=== PATIENT | male | born 1935 | race Caucasian/White ===

== ENCOUNTER 2020-12-07 18:23 | Inpatient (IN) | payer MEDICARE, OTHER ==
[~2020-12-07] VITALS: Ht 160 cm; Wt 65.8 kg
--- NOTE | 2020-12-07 18:28 | NUR ---
AT [facility] FOR EVAL.
--- NOTE | 2020-12-07 18:33 | NUR ---
IV LINE ESTABLISHED BLOOD DRAW AND SENT TO LAB.
--- NOTE | 2020-12-07 18:36 | NUR ---
CODE STROKE ACTIVATED.
--- NOTE | 2020-12-07 18:39 | NUR ---
PT IS WHEELED TO CT SCAN VIA [facility].
[2020-12-07 18:45] LABS: BASOPHILS # (AUTO) 0.1 /CMM (0.0-0.2); BASOPHILS % (AUTO) 1.2 % (0.0-2.0); EOSINOPHILS % (AUTO) 0.6 % (0.0-6.0); HEMATOCRIT 43 % (39-51); HEMOGLOBIN 14.5 g/dL (13.5-17.5); LYMPHOCYTES % (AUTO) 11.1 % (20.0-44.0); MEAN CORPUSCULAR HGB CONC 34 g/dl (31.0-36.0); MEAN CORPUSCULAR VOLUME 93 fL (80-96); MONOCYTES # (AUTO) 0.4 /CMM (0.1-1.30); MONOCYTES % (AUTO) 4.6 % (2.0-12.0); NEUTROPHILS # (AUTO) 7.8 /CMM (1.8-8.9); NEUTROPHILS % (AUTO) 82.5 % (43.0-81.0); PLATELET COUNT (AUTO) 268 /CMM (150-450); RED BLOOD CELL COUNT(AUTO) 4.62 MIL/uL (4.5-6.0); WHITE BLOOD COUNT (AUTO) 9.4 K/uL (4.3-11.0)
[2020-12-07] MEDS ORDERED: IOHEXOL-350 100 ML VIAL IV ONE (18:45)
[2020-12-07] MEDS ORDERED: CT SWABBABLE VALVE TRANS SET 1 EA INFUS.SET MC ONE (18:45)
[2020-12-07] MEDS ORDERED: IV NS 0.9% 250 ML IV ONE (18:46)
[2020-12-07 18:51] LABS: CALCIUM, SERUM 9.8 mg/dL (8.5-10.1); CARBON DIOXIDE 24 mmol/L (21-32); CHLORIDE 104 mmol/L (98-107); GLUCOSE 108 mg/dL (74-106); POTASSIUM 4.1 mmol/L (3.5-5.1); SODIUM SERUM 141 mmol/L (136-145); UREA NITROGEN, BLOOD 16 mg/dL (7-18)
[2020-12-07] MEDS ORDERED: CALC1TAB30 PO (18:51)
[2020-12-07] MEDS ORDERED: DIGO125T PO (18:51)
[2020-12-07] MEDS ORDERED: AMLO2.5T4 PO (18:51)
[2020-12-07] MEDS ORDERED: LISI2.5T2 PO (18:51)
[2020-12-07] MEDS ORDERED: OMEP20CA15 PO (18:51)
[2020-12-07] MEDS ORDERED: CLOP75TA15 PO (18:51)
[2020-12-07] MEDS ORDERED: ASPI-1169 PO (18:51)
--- NOTE | 2020-12-07 19:01 | NUR ---
NIHSS SCORE 6
--- NOTE | 2020-12-07 19:02 | NUR ---
SWALLOW EVAL DONE, PATIENT FAILED DUE TO DYSARTHRIA.
[2020-12-07 19:09] LABS: CHOLESTEROL 185 mg/dL (<200); HDL CHOLESTEROL 64 mg/dL (40-60); LDL 92 mg/dL (0-99); TRIGLYCERIDES 195 mg/dL (30-150)
--- NOTE | 2020-12-07 19:09 | NUR ---
TELE NEURO ACTIVATED AND DR KIMBROUGH ON THE MONITOR FOR EVAL.
--- NOTE | 2020-12-07 19:43 | NUR ---
covid swab collected and sent to the lab
--- NOTE | 2020-12-07 19:52 | NUR ---
DR. ROMAN SPEAKING WITH DR. AVENDAÑO REGARDING ADMISSION
--- NOTE | 2020-12-07 20:05 | NUR ---
CALLED NURSING SUP FOR BED
--- NOTE | 2020-12-07 21:07 | NUR ---
SUJATHA LIANG, SON, WILL CALL FOR ANY UPDATES. PLEASE LET HIM KNOW.
--- NOTE | 2020-12-07 21:24 | NUR ---
BED ASSIGNMENT 328
--- NOTE | 2020-12-07 21:30 | NUR ---
PATIENT AMBULATED TO THE RESTROOM WITH A STEADY GAIT.
[2020-12-07] MEDS ORDERED: SIMVASTATIN 40 MG TABLET PO SCH (22:00)
--- NOTE | 2020-12-07 22:01 | NUR ---
REPORT GIVEN TO [facility] FOR LINDA.
[2020-12-07 22:10] VITALS: BP 125/86
--- NOTE | 2020-12-07 22:10 | NUR ---
TELERN RECEIVED FROM ER VIA HIRA AN 84 Y/O MALE WITH CC OF WORSENING SLURRED SPEECH SINCE THIS AFTERNOON. PATIENT IS AMBULATORY WITH STANDBY ASSIST. HFR. ASSISTED TO RESTROOM VOIDED FREELY. ORIENTED TO ROOM FACILITIES AND CALL LIGHT USE. APPEARS TO UNDERSTAND. LUMBER TRIPPER SHOWING AFIB AT RATE 80s. DENIES ANY DISCOMFORTS OF THIS TIME. NO SOB. 97% ON ROOM AIR. ABLE TO PROVIDE INFO AND ABLE TO FOLLOW INSTRUCTIONS. HAS EXPRESSIVE APHASIA. NO DIFFICULTY SWALLOWING. SAFETY PRECAUTIONS EMPHASIZED , INSTRUCTED TO CALL STAFF FOR ANY ASSISTANCE OR DISCOMFORTS. CALL LIGHT WITHIN REACH. CONTINUED MONITORING.
--- NOTE | 2020-12-07 22:10 | NUR ---
REGISTERED NURSING PROFESSORSPINNING LATHE OPERATOR HYDRAULIC NOTES [facility] CHARGE NURSE RECEIVED REPORT FROM ER AND ENDORSED TO RN. PATIENT TRANSFERRED FROM ER TO TELE 3W AT 2210. PATIENT A/OX0 AT THE TIME; CONFUSION NOTED. LEFT SIDED FACIAL DROOP NOTED. SLURRED AND DELAYED SPEECH NOTED. NIH STROKE SCALE 6. ON ROOM AIR AND TOLERATING WELL. EXTERNAL CARDIAC TELE MONITORING; READS AFIB AND HR AT 76. IV LAC #18G S/L; PATENT AND INTACT. DENIES PAIN OR DISCOMFORT AT THE TIME. SKIN IS INTACT. TOLERATED SWALLOWING THIN LIQUIDS WELL. ORIENTED PATIENT TO ROOM AND STAFF. ALL BELONGINGS ACCOUNTED FOR AND RN SIGNED BELONGINGS LIST PAPER. ALL SAFETY MEASURES IN PLACE; BED IN LOWEST LOCKED POSITION, SIDE RAILS UP X3, BED ALARMS ON, CALL LIGHT WITHIN EASY REACH. WILL CONTINUE TO MONITOR.
[2020-12-07 22:20] VITALS: BP 125/86
--- NOTE | 2020-12-07 22:20 | NUR ---
TELERN UNABLE TO REACH FAMILY FOR FURTHER INFO.
--- NOTE | 2020-12-07 22:21 | NUR ---
PATIENT TAKEN UP TO ASSIGNED ROOM FOR LINDA.
[2020-12-07] MEDS ORDERED: SIMVASTATIN 20 MG TABLET ONE (23:36)
[2020-12-07] MEDS: ASPIRIN EC 325 MG TABLET.DR PO SCH (23:37)
[2020-12-07] MEDS: SIMVASTATIN 20 MG TABLET PO SCH (23:51)
--- NOTE | 2020-12-08 00:18 | NUR ---
TELERN SEEN BY DR. AVENDAÑO
[2020-12-08 00:49] VITALS: BP 113/62
[2020-12-08 04:53] VITALS: BP 133/48
[2020-12-08] MEDS ORDERED: ONDANSETRON HCL/PF 8 MG in IV D5W 50 ML IVP PRN (07:00)
[2020-12-08 07:28] LABS: BASOPHILS % (AUTO) 0.6 % (0.0-2.0); EOSINOPHILS % (AUTO) 0.9 % (0.0-6.0); HEMATOCRIT 38 % (39-51); HEMOGLOBIN 13.1 g/dL (13.5-17.5); LYMPHOCYTES % (AUTO) 19.5 % (20.0-44.0); MEAN CORPUSCULAR HGB CONC 34 g/dl (31.0-36.0); MEAN CORPUSCULAR VOLUME 93 fL (80-96); MONOCYTES % (AUTO) 8.9 % (2.0-12.0); NEUTROPHILS % (AUTO) 70.1 % (43.0-81.0); PLATELET COUNT (AUTO) 227 /CMM (150-450); RED BLOOD CELL COUNT(AUTO) 4.12 MIL/uL (4.5-6.0)
[2020-12-08 07:29] LABS: LYMPHOCYTES # (AUTO) 1.6 /CMM (0.8-4.8); MONOCYTES # (AUTO) 0.7 /CMM (0.1-1.30); NEUTROPHILS # (AUTO) 5.6 /CMM (1.8-8.9)
--- NOTE | 2020-12-08 07:50 | NUR ---
MS/RN OPENING NOTE RECEIVED PATIENT FROM SEO MARKETING SPECIALIST NURSE. PATIENT IS IN BED ASLEEP INTERMITTENTLY, A/O X2 SLURRED SPEECH. NO ACUTE DISTRESS NOTED AT THIS TIME. ON ROOM AIR TOLERATING WELL, NO SOB NOTED, BREATHING EVEN NON LABORED. SAFETY MEASURES IN PLACE, BED LOCKED AND IN LOWEST POSITION, CALL LIGHT WITHIN REACH. WILL CONTINUE TO MONITOR AND ENSURE SAFETY.
[2020-12-08 08:05] VITALS: BP 131/87
[2020-12-08] MEDS: ASPIRIN EC 325 MG TABLET.DR PO SCH (08:13)
[2020-12-08] MEDS: PANTOPRAZOLE 40 MG TABLET.DR PO SCH (08:13)
--- NOTE | 2020-12-08 08:16 | NUR ---
CITY WEIGHMASTER CLOSING NOTES A/OX0 AT THE TIME; CONFUSION NOTED. LEFT SIDED FACIAL DROOP NOTED. SLURRED AND DELAYED SPEECH NOTED. NIH STROKE SCALE 6. ON ROOM AIR AND TOLERATING WELL. EXTERNAL CARDIAC TELE MONITORING; READS AFIB AND HR AT 80'S - 90'S WHEN AWAKE AND 30'S WHEN ASLEEP. IV LAC #18G S/L; PATENT AND INTACT. SKIN IS INTACT. TOLERATED SWALLOWING WELL WITH NO ASPIRATION. ALL SAFETY MEASURES IN PLACE; BED IN LOWEST LOCKED POSITION, SIDE RAILS UP X3, BED ALARMS ON, CALL LIGHT WITHIN EASY REACH. ENDORSED PLAN OF CARE TO ONCOMING NURSE.
[2020-12-08 08:18] LABS: CALCIUM, SERUM 9.4 mg/dL (8.5-10.1); POTASSIUM 3.9 mmol/L (3.5-5.1)
[2020-12-08 12:10] VITALS: BP 117/64
[2020-12-08] MEDS: DIGOXIN 0.125 MG TABLET PO SCH (13:00)
--- NOTE | 2020-12-08 13:04 | NUR ---
Floor Coverer Apprentice Consult: business services officer is requested by ICU to do stroke assessment on pt. SW met with pt at bedside room 328-t to do a stroke assessment at 1245 pm. SW is unable to assess the pt. Pt is non compliant and refuse to answer questions. Pt keeps repeating " I don't know" to most of the questions. Plan: SW will follow up once the pt agrees and compliant to the assessment. Floor Coverer Apprentice is available upon request
--- NOTE | 2020-12-08 13:24 | NUR ---
MS/RN NOTE DAUGHTER OF PATIENT, ASMITA HINOJOSA CALLED TO INQUIRE INFORMATION REGARDING CARE AFTER DISCHARGE. MADE CM AWARE OF CONCERN, CM TO F/U.
--- NOTE | 2020-12-08 13:31 | NUR ---
MS/RN NOTE REFUSED MRI. POTTERY MACHINE OPERATOR STATED PATIENT REFUSED DUE TO FEELING CLAUSTROPHOBIC.
[2020-12-08] MEDS: ONDANSETRON HCL/PF 4 MG/2 ML VIAL IVP PRN (14:57)
[2020-12-08] MEDS ORDERED: INFLUENZA VACCINE 2020-21 0.5 ML DISP.SYRIN IM ONE (17:30)
--- NOTE | 2020-12-08 18:00 | NUR ---
MS/RN NOTE FLU VACCINE ADMINISTERED AT LEFT DELTOID.
--- NOTE | 2020-12-08 19:14 | NUR ---
MS/RN OPENING NOTE PATIENT IS IN BED AWAKE, A/O X2-3 SLURRED SPEECH. NO ACUTE DISTRESS NOTED AT THIS TIME. ON ROOM AIR TOLERATING WELL, NO SOB NOTED, BREATHING EVEN NON LABORED. SAFETY MEASURES IN PLACE, BED LOCKED AND IN LOWEST POSITION, CALL LIGHT WITHIN REACH. ALL NEEDS MET THROUGHOUT THE SHIFT. WILL ENDORSE TO MACHINE HEDDLE CLEANER NURSE.
[2020-12-08 20:00] VITALS: BP 146/84
[2020-12-08] MEDS: SIMVASTATIN 20 MG TABLET PO SCH (21:46)
[2020-12-09 04:00] VITALS: BP 139/81
[2020-12-09 04:30] VITALS: BP 109/81
[2020-12-09] MEDS: ONDANSETRON HCL/PF 4 MG/2 ML VIAL IVP PRN (04:48)
--- NOTE | 2020-12-09 05:37 | NUR ---
closing notes: alert and orientated x4 will ask appriop questions about what we are doing and why what the heplock is for and if needed cooperative wears a gauze 2x2 over the left eye "some blurred vision noted the eyelid droops left eye nihss scale he was given a 5 moderate aphasia
--- NOTE | 2020-12-09 07:30 | NUR ---
MYSQL DATABASE ADMINISTRATOR NOTES PT AWAKE, ALERT AND ORIENTED X 2, WITH PERIODS OF CONFUSION, ABLE TO FOLLOW CUES, NO COMPLAINT OF PAIN, RESPIRATIONS NORMAL, CALL LIGHT WITHIN REACH, AMBULATES WITH SLOW STEADY GAIT, CLEAR SPEECH BUT UNABLE TO FIND HIS WORDS AT TIMES, WILL CONTINUE TO MONITOR.
[2020-12-09 07:57] LABS: CALCIUM, SERUM 9.2 mg/dL (8.5-10.1); CREATININE 1.1 mg/dL (0.6-1.3)
[2020-12-09 08:00] VITALS: BP 137/91
[2020-12-09 08:04] LABS: BASOPHILS # (AUTO) 0.1 /CMM (0.0-0.2); BASOPHILS % (AUTO) 0.7 % (0.0-2.0); EOSINOPHILS % (AUTO) 0.8 % (0.0-6.0); HEMATOCRIT 41 % (39-51); HEMOGLOBIN 13.7 g/dL (13.5-17.5); LYMPHOCYTES # (AUTO) 1.1 /CMM (0.8-4.8); MEAN CORPUSCULAR HGB CONC 34 g/dl (31.0-36.0); MEAN CORPUSCULAR VOLUME 94 fL (80-96); MONOCYTES # (AUTO) 0.7 /CMM (0.1-1.30); MONOCYTES % (AUTO) 7.8 % (2.0-12.0); NEUTROPHILS # (AUTO) 7.1 /CMM (1.8-8.9); NEUTROPHILS % (AUTO) 78.7 % (43.0-81.0); PLATELET COUNT (AUTO) 239 /CMM (150-450); RED BLOOD CELL COUNT(AUTO) 4.37 MIL/uL (4.5-6.0)
[2020-12-09] MEDS: ASPIRIN 81 MG TAB.CHEW PO SCH (08:46)
[2020-12-09] MEDS: PANTOPRAZOLE 40 MG TABLET.DR PO SCH (08:47)
[2020-12-09] MEDS: CLOPIDOGREL BISULFATE 75 MG TABLET PO SCH (08:47)
--- NOTE | 2020-12-09 10:27 | NUR ---
Clinical Social Work Note Met with patient in his room where he is confused and unable to even give his name. Patient is therefore, disoriented. The PhQ-9 can therefore not be performed with him to assess depression. Patient also has a history of a benign brain tumor so may have some deficits as result of this. Per Jyotsna, charge entry clerk, his daughter, Colette and patient's are caring and involved, Patient also has expressive aphasia. Patient's discharge plan is not yet solidified and case management are exploring different options with the patient.
[2020-12-09] MEDS: DIGOXIN 0.125 MG TABLET PO SCH (12:24)
[2020-12-09 12:33] VITALS: BP 156/85
[2020-12-09] MEDS ORDERED: ENOXAPARIN SODIUM 40 MG/0.4 ML DISP.SYRIN SQ SCH (14:00)
[2020-12-09 16:00] VITALS: BP 145/65
--- NOTE | 2020-12-09 19:00 | NUR ---
ENERGY AND SUSTAINABILITY MANAGER NOTES PT IN BED, RESTING, ALERT AND VERBALLY RESPONSIVE, WITH EPISODES OF CONFUSION AND EXPRESSIVE APHASIA, COMPLIANT WITH CARE AND INTERVENTIONS, SEEN BY DR. CORTÉS AND DR. ALY, FAMILY INFORMED OF PLAN OF CARE, VERBALIZED UNDERSTANDING, PT AMBULATES WITH STEADY GAIT, STANDBY ASSISTANCE PROVIDED, NEUROCHECKS DONE, FALL PRECAUTIONS OBSERVED, ALL NEEDS ATTENDED.
--- NOTE | 2020-12-09 19:00 | NUR ---
RECEIVED IN BED ASLEEP RESP EVEN AND UNLABORED ROOM AIR CALL LIGHT WITHIN REACH
[2020-12-09 20:00] VITALS: BP 148/70
[2020-12-09] MEDS: SIMVASTATIN 20 MG TABLET PO SCH (21:19)
--- NOTE | 2020-12-10 04:43 | NUR ---
ENDING NOTES: SLEPT THRU THE NIGHT GETTING UP X1 TO TELL THE NURSE THE ROOM WAS TOO HOT. HIS SPEECH HAS IMPROVED SINCE 24 HOURS AGO HIS GAIT IS STEADY BUT FOR SAFETY BEST TO HAVE NURSE STANDBY. SWALLOWS W/O PROBLEM. NOTED HE HAS SOME DIFFICULTY WHEN TALLKING IS FINING THEN WORD TO USE. PLEASENT AND COOPERATIVE
[2020-12-10 07:30] LABS: BASOPHILS # (AUTO) 0.1 /CMM (0.0-0.2); BASOPHILS % (AUTO) 0.8 % (0.0-2.0); EOSINOPHILS % (AUTO) 0.6 % (0.0-6.0); HEMATOCRIT 44 % (39-51); LYMPHOCYTES # (AUTO) 2.5 /CMM (0.8-4.8); LYMPHOCYTES % (AUTO) 23.7 % (20.0-44.0); MEAN CORPUSCULAR HGB CONC 34 g/dl (31.0-36.0); MEAN CORPUSCULAR VOLUME 93 fL (80-96); MONOCYTES % (AUTO) 9.8 % (2.0-12.0); NEUTROPHILS # (AUTO) 6.8 /CMM (1.8-8.9); NEUTROPHILS % (AUTO) 65.1 % (43.0-81.0); PLATELET COUNT (AUTO) 290 /CMM (150-450); RED BLOOD CELL COUNT(AUTO) 4.76 MIL/uL (4.5-6.0); WHITE BLOOD COUNT (AUTO) 10.4 K/uL (4.3-11.0)
--- NOTE | 2020-12-10 07:30 | NUR ---
MS/RN Opening note Patient received from night custodian. A/O X3, vital signs stable, denies pain or discomfort at this time. No weakness noted to any extremity, able to ambulate with standby assist only. Tremors noted when patient becomes frustrated and unable to express himself, otherwise steady gait. All questions and needs addressed, will continue to monitor and ensure safety.
[2020-12-10 07:39] LABS: CALCIUM, SERUM 9.4 mg/dL (8.5-10.1); CREATININE 1.3 mg/dL (0.6-1.3); MAGNESIUM 1.8 mg/dL (1.8-2.4); POTASSIUM 3.7 mmol/L (3.5-5.1)
[2020-12-10 08:00] VITALS: BP 149/96
[2020-12-10] MEDS: PANTOPRAZOLE 40 MG TABLET.DR PO SCH (08:02)
[2020-12-10] MEDS: ASPIRIN 81 MG TAB.CHEW PO SCH (08:03)
[2020-12-10] MEDS: CLOPIDOGREL BISULFATE 75 MG TABLET PO SCH (08:03)
--- NOTE | 2020-12-10 09:00 | NUR ---
MS/core stripper Morning medications administered as ordered, no difficulty swallowing.
[2020-12-10] MEDS ORDERED: DILTIAZEM HCL CD 240 MG PO SCH (09:30)
--- NOTE | 2020-12-10 09:31 | NUR ---
received call from dr. Meyer to transfer pt to higher level of care due to occlusion of internal carotid artery. Reported during case management meeting and according to dr. Rivas and hospitalist no transfer needed. will inform dr. Meyer.
--- NOTE | 2020-12-10 09:45 | NUR ---
MS/RN Dr Goncalves Patient previously seen by Dr Goncalves - no vascular intervention needed, to continue with current medical management.
--- NOTE | 2020-12-10 10:30 | NUR ---
MS/RN S/B Dr Moreno Seen by Dr Moreno - roasterman anticoagulation once cleared by neuro.
[2020-12-10] MEDS: DIGOXIN 0.125 MG TABLET PO SCH (12:28)
--- NOTE | 2020-12-10 13:31 | NUR ---
MS/RN Digoxin Digoxin administered as ordered, heart rate 127.
[2020-12-10] MEDS ORDERED: ATOR40TA PO (14:44)
[2020-12-10] MEDS ORDERED: APIX5TAB PO (14:44)
[2020-12-10] MEDS ORDERED: DILT240C88 PO (14:44)
--- NOTE | 2020-12-10 15:58 | NUR ---
MS/weatherization installer instructions Daughter Colette called, discharge information/instructions provided. Made aware of mediations that have already been administered today, and those that were still due. Informed that norvasc was no longer needed and to dispose of this medication at home. Informed that he was to follow up with primary care doctor in 7-10 days and also to ask for referral to a neurologist. Heplock, name bands and tele removed. All personal belongings returned to patient and signed for on belongings list. Daughter to provide transport.
[2020-12-10 16:00] VITALS: BP 139/72
== END 2020-12-10 16:35 | disposition home health service (06) | DRG 66 ==
LOC: ER 18:29 → TRANSITION 21:01 → TELE 21:25
PROVIDERS: ADMIT Student in an Organized Health Care Education/Training Program; ATTEND Nurse Practitioner Family
DX: I63.232 Cerebral infarction due to unspecified occlusion or stenosis of left carotid arteries (principal); I10 Essential (primary) hypertension; K21.9 Gastro-esophageal reflux disease without esophagitis; E03.9 Hypothyroidism, unspecified; E78.5 Hyperlipidemia, unspecified; Z79.82 Long term (current) use of aspirin; Z92.3 Personal history of irradiation; Z20.822 Contact with and (suspected) exposure to COVID-19; R47.81 Slurred speech; R29.706 NIHSS score 6; I48.91 Unspecified atrial fibrillation; R40.2362 Coma scale, best motor response, obeys commands, at arrival to emergency department; R40.2142 Coma scale, eyes open, spontaneous, at arrival to emergency department; R40.2242 Coma scale, best verbal response, confused conversation, at arrival to emergency department; T50.8X5A Adverse effect of diagnostic agents, initial encounter; Z79.02 Long term (current) use of antithrombotics/antiplatelets; Z86.011 Personal history of benign neoplasm of the brain; R47.01 Aphasia
CPT/HCPCS: 36415; 70450-TC; 70496-TC; 70498-TC; 71045-TC; 80048-TC; 80061-TC; 80162-TC; 82962-TC; 83605-TC; 83735-TC; 84100-TC; 84439-TC; 84443-TC; 84484-TC; 85025-TC; 85730-TC; 87081-TC; 92507-TC; 92521; 92526; 92611-TC; 93307-TC; 93880-TC; 97112-TC; 97116-TC; 97530-TC; C9803; G0378; J1650; J2405; J7050; Q2036; Q9967

== ENCOUNTER 2020-12-15 05:02 | Inpatient (IN) | payer MEDICARE, OTHER ==
[~2020-12-15] VITALS: Ht 165.1 cm; Wt 66.7 kg
[~2020-12-15 05:02] MED LIST: APIX5TAB PO; ASPI-1169 PO; ATOR40TA PO; CALC1TAB30 PO; CLOP75TA15 PO; DIGO125T PO; DILT240C88 PO; OMEP20CA15 PO
--- NOTE | 2020-12-15 05:09 | NUR ---
MYRANDA FROM HOME FOR EVALUATION OF S/P FALL DUE TO GENERALIZED WEAKNESS. PT ALERT, AWAKE AND RESPONSIVE, NOTED W/ EXPRESSIVE DYSPHAGIA. PT WITH HX OF CVA 1 WEEK AGO. PER EMS PT HAD NO SYNCOPAL EPISODE . PT DENIED KO OR HITTING HIS HEAD. NO C.O ACUE PAIN. PT WAS ASSISTED TO BED 1 ER AND PLACED ON A MONITOR . VSS. AWITING MD MADDEN.
[2020-12-15 05:35] LABS: BASOPHILS # (AUTO) 0.1 /CMM (0.0-0.2); BASOPHILS % (AUTO) 0.5 % (0.0-2.0); EOSINOPHILS % (AUTO) 0.4 % (0.0-6.0); HEMATOCRIT 43 % (39-51); HEMOGLOBIN 14.6 g/dL (13.5-17.5); LYMPHOCYTES # (AUTO) 1.1 /CMM (0.8-4.8); LYMPHOCYTES % (AUTO) 8.2 % (20.0-44.0); MEAN CORPUSCULAR HGB CONC 34 g/dl (31.0-36.0); MEAN CORPUSCULAR VOLUME 93 fL (80-96); MONOCYTES # (AUTO) 0.9 /CMM (0.1-1.30); MONOCYTES % (AUTO) 6.9 % (2.0-12.0); NEUTROPHILS # (AUTO) 11.4 /CMM (1.8-8.9); PLATELET COUNT (AUTO) 338 /CMM (150-450); RED BLOOD CELL COUNT(AUTO) 4.66 MIL/uL (4.5-6.0); WHITE BLOOD COUNT (AUTO) 13.6 K/uL (4.3-11.0)
--- NOTE | 2020-12-15 05:38 | NUR ---
RAD AT BED SIDE TO TAKE THE OT TO CT
[2020-12-15 05:46] LABS: CALCIUM, SERUM 10.4 mg/dL (8.5-10.1); CARBON DIOXIDE 25 mmol/L (21-32); CHLORIDE 102 mmol/L (98-107); CREATININE 1.1 mg/dL (0.6-1.3); GLUCOSE 148 mg/dL (74-106); POTASSIUM 3.8 mmol/L (3.5-5.1); SODIUM SERUM 139 mmol/L (136-145); UREA NITROGEN, BLOOD 16 mg/dL (7-18)
[2020-12-15 05:51] LABS: CHOLESTEROL 137 mg/dL (<200); HDL CHOLESTEROL 66 mg/dL (40-60); LDL 58 mg/dL (0-99); TRIGLYCERIDES 69 mg/dL (30-150)
[2020-12-15] MEDS ORDERED: IOHEXOL-350 100 ML VIAL IV ONE (05:58)
[2020-12-15] MEDS ORDERED: IV NS 0.9% 250 ML IV ONE (05:58)
[2020-12-15] MEDS ORDERED: CT SWABBABLE VALVE TRANS SET 1 EA INFUS.SET MC ONE (05:58)
--- NOTE | 2020-12-15 06:00 | NUR ---
SOUMYA, DAUGHTER: [phone] SUJATHA LIANG, SON-IN-LAW: [phone] YASMINE RIOS, : [phone]
--- NOTE | 2020-12-15 06:09 | NUR ---
PT WAS TAKEN TO CTA
--- NOTE | 2020-12-15 06:24 | NUR ---
BACK FROM CTA
--- NOTE | 2020-12-15 06:37 | NUR ---
Call from lab. Rapid covid negative.
--- NOTE | 2020-12-15 06:46 | NUR ---
DR MENDOZA AT BED SIDE
--- NOTE | 2020-12-15 08:21 | NUR ---
paged epic for panel admission
[2020-12-15] MEDS ORDERED: CLOPIDOGREL BISULFATE 75 MG TABLET PO SCH (09:30)
--- NOTE | 2020-12-15 10:07 | NUR ---
report given to Cecilia valverde for karly
--- NOTE | 2020-12-15 10:27 | NUR ---
wheeled patient via gurney accompanied by RN and emt in no distress.
--- NOTE | 2020-12-15 10:54 | NUR ---
MS/paper reeler New admission from emergency room with generalized weakness. Patient fully admitted, orders noted and carried out.
[2020-12-15] MEDS: ATORVASTATIN 40 MG TABLET PO SCH (11:23)
[2020-12-15] MEDS: ASPIRIN 81 MG TAB.CHEW PO SCH (11:23)
[2020-12-15] MEDS: BLOOD SUGAR DIAGNOSTIC 1 EACH STRIP IN SCH ×3 (11:23→22:08)
[2020-12-15] MEDS: CALCIUM CARB 250MG /VITAMIN D 1 UDTAB PO SCH (11:23)
[2020-12-15] MEDS: APIXABAN 5 MG TABLET PO SCH ×2 (11:31→16:50)
[2020-12-15] MEDS ORDERED: BLOOD SUGAR DIAGNOSTIC 1 EACH STRIP IN SCH (12:00)
--- NOTE | 2020-12-15 13:00 | NUR ---
MS/RN Speech therapy Swallow evaluation at bedside. No restrictions with diet, able to swallow without difficulty. Speech evaluation scheduled for tomorrow.
[2020-12-15] MEDS: DIGOXIN 0.125 MG TABLET PO SCH (13:21)
--- NOTE | 2020-12-15 14:31 | NUR ---
MS/RN PT/OT Patient evaluated, orders noted and carried out.
[2020-12-15] MEDS ORDERED: IV NS 0.9% 1,000 ML IV ONE (15:00)
[2020-12-15] MEDS: IV NS 0.9% 1,000 ML IV SCH (15:23)
--- NOTE | 2020-12-15 15:55 | NUR ---
MS/RN Orders Order obtained from Dr Swenson for complete x-ray of right knee. Per family, noticed swelling to knee with redness for past 24 hours.
[2020-12-15 16:00] VITALS: BP 108/46
--- NOTE | 2020-12-15 16:00 | NUR ---
MS/RN S/B Dr Meyer Seen by Dr Meyer - recommend transfer to higher level of care to acute stroke center and vascular surgery consult. Blood pressure to be kept with systolic greater than 150, IV hydration ordered.
--- NOTE | 2020-12-15 16:34 | NUR ---
Social Service Consult: Social Service consult to find placement for pt at [facility] bedside 310/1. SW spoke to case management (Alicia) at 16:30 pm and case management will look into finding placement. Plan: Case management will find placement for the pt once medically discharged. Bursar will be available as needed
--- NOTE | 2020-12-15 18:15 | NUR ---
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 All medications administered as ordered, no difficulty swallowing pills. Update as to condition provided to daughter Colette. Patient remains in stable condition, will endorse to overnight cashier.
--- NOTE | 2020-12-15 19:40 | NUR ---
TELERN ASLEEP, AFIB CONTROLLED RATE ON THE MONITOR. TO CONTINUE.
[2020-12-15 20:00] VITALS: BP 138/70
--- NOTE | 2020-12-15 22:00 | NUR ---
TELERN AWAKENED WHEN CALLED, BS WAS 110. REFUSED ANY SNACKS CONVERSANT SHORT PRAISES CLEAR. VERY PLEASANT, WENT BACK TO SLEEP.KEPT COMFORTABLE.
[2020-12-16] VITALS: BP 134/76
--- NOTE | 2020-12-16 01:34 | NUR ---
TELERN AWAKE AT THIS TIME. ASSISTED TO USE URINAL, VOIDED. HFR. STILL UNABLE TO STEP ON HIS RIGHT FOOT SEC TO KNEE PAIN. SAFETY PRECAUTIONS EMPHASIZED, PATIENT FORGETFUL. NEEDS CONSTANT OBSERVATION.
[2020-12-16 04:00] VITALS: BP 156/80
[2020-12-16 06:27] LABS: BASOPHILS # (AUTO) 0.1 /CMM (0.0-0.2); BASOPHILS % (AUTO) 0.9 % (0.0-2.0); EOSINOPHILS % (AUTO) 0.4 % (0.0-6.0); HEMATOCRIT 38 % (39-51); HEMOGLOBIN 13.3 g/dL (13.5-17.5); LYMPHOCYTES # (AUTO) 1.3 /CMM (0.8-4.8); LYMPHOCYTES % (AUTO) 12.9 % (20.0-44.0); MEAN CORPUSCULAR HGB CONC 35 g/dl (31.0-36.0); MEAN CORPUSCULAR VOLUME 93 fL (80-96); MONOCYTES # (AUTO) 1.1 /CMM (0.1-1.30); MONOCYTES % (AUTO) 10.3 % (2.0-12.0); NEUTROPHILS # (AUTO) 7.8 /CMM (1.8-8.9); NEUTROPHILS % (AUTO) 75.5 % (43.0-81.0); PLATELET COUNT (AUTO) 293 /CMM (150-450); RED BLOOD CELL COUNT(AUTO) 4.15 MIL/uL (4.5-6.0); WHITE BLOOD COUNT (AUTO) 10.3 K/uL (4.3-11.0)
[2020-12-16 06:52] LABS: CALCIUM, SERUM 9.1 mg/dL (8.5-10.1); CREATININE 0.9 mg/dL (0.6-1.3); POTASSIUM 3.6 mmol/L (3.5-5.1)
[2020-12-16] MEDS: BLOOD SUGAR DIAGNOSTIC 1 EACH STRIP IN SCH ×4 (06:58→21:39)
--- NOTE | 2020-12-16 07:00 | NUR ---
TELERN BS 91 NO COVERAGE. BREAKFAST SERVED.
[2020-12-16] MEDS: IV NS 0.9% 1,000 ML IV SCH ×2 (07:05→18:35)
--- NOTE | 2020-12-16 07:30 | NUR ---
TRAFFIC CIRCUIT ENGINEER NOTES PT IN BED, AWAKE, ALERT AND ORIENTED, NO COMPLAINT AT THIS TIME, BREATHING PATTERN NORMAL, CALL LIGHT WITHIN REACH, SAFETY PRECAUTIONS OBSERVED, ASSISTED WITH BREAKFAST. NEEDS ATTENDED.
--- NOTE | 2020-12-16 07:30 | NUR ---
RECEIVED PT. IN AM ALERT AND ORIENTED X2-3.DIFFICULTY WITH WORD FINDING.NO APPARENT CHANGES IN NEURO STATUS.VS STABLE.
[2020-12-16 08:00] VITALS: BP 158/100
[2020-12-16] MEDS ORDERED: DILTIAZEM HCL CD 240 MG PO SCH (09:00)
[2020-12-16] MEDS: ATORVASTATIN 40 MG TABLET PO SCH (10:35)
[2020-12-16] MEDS: CALCIUM CARB 250MG /VITAMIN D 1 UDTAB PO SCH (10:35)
[2020-12-16] MEDS: ASPIRIN 81 MG TAB.CHEW PO SCH (10:35)
[2020-12-16] MEDS: APIXABAN 5 MG TABLET PO SCH ×2 (10:36→18:19)
[2020-12-16] MEDS: DIGOXIN 0.125 MG TABLET PO SCH (13:41)
[2020-12-16 16:00] VITALS: BP 154/90
--- NOTE | 2020-12-16 16:19 | NUR ---
Shorthand Teacher Consult: Binder And Wrapper Packer met with the 84 year old patient at bedside who was admitted to [facility] due to a stroke. Pt appears to be oriented x2 (place and situation). Pt was having a difficult time remembering his name and what year it was. Pt appears to be forgetful at times and pt appears to become agitated when he cannot remember. Pt states that he lives at home with his and he would love to return there and be with her. Pt states that he is not depressed and that he "has a life to continue living." Pt appears to be in a euthymic mood and presents with a calm affect. Pt states that he has been having difficulty with his memory and he has been having trouble falling asleep. Pt states that he still has energy and he still likes to do some things and he definitely does not want to take his life. Pt appears to be disheveled and ungroomed. Pts ambulation could not be assessed as the pt was laying down in his bed and did not want to get up. Pt repeatedly stated that he "wants to go home." ENMA conducted the [place] Depression questionnaire with the pt and he scored 4 which placed him in the none to minimal depression range. ENMA then provided the pt with a packet of stroke resources and informed him to utilize them to which the pt agreed.
--- NOTE | 2020-12-16 19:05 | NUR ---
MS RN OPENING NOTES: PATIENT IN BED AWAKE, CONFUSED. NO S/S OF DISTRESS NOTED. CALL LIGHT WITHIN REACH. BED ALARM ON. BED IN LOWEST AND LOCKED POSITION. HOB ELEVATED.
[2020-12-16 20:44] VITALS: BP 141/79
--- NOTE | 2020-12-16 21:40 | NUR ---
blood [id number]=[id number].
--- NOTE | 2020-12-17 06:00 | NUR ---
MS RN CLOSING NOTES: PATIENT IN BED, AWAKE, A/O X1-2, NO S/S OF DISTRESS NOTED. CALL LIGHT WITHIN REACH. BED ALARM ON. BED IN LOWEST AND LOCKED POSITION.
[2020-12-17 06:36] LABS: BASOPHILS # (AUTO) 0.1 /CMM (0.0-0.2); BASOPHILS % (AUTO) 0.6 % (0.0-2.0); EOSINOPHILS % (AUTO) 0.9 % (0.0-6.0); HEMATOCRIT 39 % (39-51); LYMPHOCYTES # (AUTO) 1.2 /CMM (0.8-4.8); LYMPHOCYTES % (AUTO) 12.4 % (20.0-44.0); MEAN CORPUSCULAR HGB CONC 34 g/dl (31.0-36.0); MEAN CORPUSCULAR VOLUME 93 fL (80-96); MONOCYTES # (AUTO) 0.9 /CMM (0.1-1.30); MONOCYTES % (AUTO) 9.3 % (2.0-12.0); NEUTROPHILS # (AUTO) 7.4 /CMM (1.8-8.9); NEUTROPHILS % (AUTO) 76.8 % (43.0-81.0); PLATELET COUNT (AUTO) 301 /CMM (150-450); RED BLOOD CELL COUNT(AUTO) 4.17 MIL/uL (4.5-6.0); WHITE BLOOD COUNT (AUTO) 9.6 K/uL (4.3-11.0)
[2020-12-17 07:23] LABS: CALCIUM, SERUM 8.9 mg/dL (8.5-10.1); CREATININE 0.8 mg/dL (0.6-1.3); MAGNESIUM 1.7 mg/dL (1.8-2.4); PHOSPHORUS 3.2 mg/dL (2.5-4.9); POTASSIUM 3.8 mmol/L (3.5-5.1)
--- NOTE | 2020-12-17 07:30 | NUR ---
RN MS NOTES PT IN BED, AWAKE, ALERT, ABLE TO MAKE NEEDS KNOWN, NO COMPLAINT OF PAIN, NOT IN DISTRESS, ASSISTED WITH MEALS, CALL LIGHT WITHIN REACH.
[2020-12-17] MEDS: BLOOD SUGAR DIAGNOSTIC 1 EACH STRIP IN SCH ×4 (07:59→21:38)
[2020-12-17 08:00] VITALS: BP 152/87
[2020-12-17] MEDS: APIXABAN 5 MG TABLET PO SCH ×2 (08:28→16:42)
[2020-12-17] MEDS: ASPIRIN 81 MG TAB.CHEW PO SCH (08:28)
[2020-12-17] MEDS: ATORVASTATIN 40 MG TABLET PO SCH (08:28)
[2020-12-17] MEDS: CALCIUM CARB 250MG /VITAMIN D 1 UDTAB PO SCH (08:28)
[2020-12-17] MEDS: Magnesium 1GM/D5W 100ML PREMIX 100 ML IV SCH ×2 (11:15→12:40)
[2020-12-17] MEDS: IV NS 0.9% 1,000 ML IV SCH ×2 (11:17→16:47)
[2020-12-17] MEDS: DIGOXIN 0.125 MG TABLET PO SCH (12:49)
[2020-12-17] MEDS: ACETAMINOPHEN 325 MG TABLET PO PRN (14:06)
[2020-12-17 16:00] VITALS: BP 149/82
--- NOTE | 2020-12-17 18:16 | NUR ---
RN MS NOTES PT in bed, awake and alert. No c/o pain , no c/o distress. Able to make needs known, safety precautions observed, assisted with meals, seen by PT. Tolerated treatments well. Meds given as ordered.
--- NOTE | 2020-12-17 19:05 | NUR ---
MS RN OPENING NOTES: RECEIVED PATIENT IN BED, AWAKE, A/O X1-2. NO S/S OF DISTRESS NOTED. CALL LIGHT WITHIN REACH. BED ALARM ON. BED IN LOWEST AND LOCKED POSITION. HOB ELEVATED AT 30 DEGREES AT ALL TIMES.
--- NOTE | 2020-12-17 19:30 | NUR ---
PATIENT COMPLAINED OF RIGHT KNEE PAIN WHEN IT MOVED. COMPLAINED OF LEFT EYE ITCHINESS.
[2020-12-17 20:00] VITALS: BP 161/88
--- NOTE | 2020-12-17 20:00 | NUR ---
DVT pumps placed on both lower legs.
--- NOTE | 2020-12-17 20:33 | NUR ---
RIGHT KNEE SKIN LIGHT REDNESS NOTED.
--- NOTE | 2020-12-17 21:38 | NUR ---
blood sugar [id number], no coverage needed.
[2020-12-17 23:24] VITALS: BP 164/93
--- NOTE | 2020-12-17 23:29 | NUR ---
INFORMED HIDES SOAKER EDUIN FOR SP=455/93 HR=99. NO PRN MED.
[2020-12-18] MEDS ORDERED: CLONIDINE HCL 0.1 MG TABLET PO PRN
[2020-12-18] MEDS: IV NS 0.9% 1,000 ML IV SCH (06:17)
--- NOTE | 2020-12-18 06:29 | NUR ---
MS RN CLOSING NOTES: PATIENT IN BED, AWAKE, A/O X2. NO S/S OF DISTRESS NOTED. CALL LIGHT WITHIN REACH. BED ALARM ON. BED IN LOWEST AND LOCKED POSITION. RESTED THROUGHOUT THE NIGHT. COMPLAIN OF MINIMAL PAIN OF THE RIGHT KNEE, TOLERABLE. URINAL AT THE BEDSIDE.
[2020-12-18 06:45] LABS: BASOPHILS % (AUTO) 0.4 % (0.0-2.0); EOSINOPHILS % (AUTO) 1.3 % (0.0-6.0); HEMATOCRIT 39 % (39-51); HEMOGLOBIN 13.4 g/dL (13.5-17.5); LYMPHOCYTES # (AUTO) 1.1 /CMM (0.8-4.8); LYMPHOCYTES % (AUTO) 11.8 % (20.0-44.0); MEAN CORPUSCULAR HGB CONC 34 g/dl (31.0-36.0); MEAN CORPUSCULAR VOLUME 92 fL (80-96); MONOCYTES # (AUTO) 0.8 /CMM (0.1-1.30); MONOCYTES % (AUTO) 8.2 % (2.0-12.0); NEUTROPHILS # (AUTO) 7.2 /CMM (1.8-8.9); NEUTROPHILS % (AUTO) 78.3 % (43.0-81.0); PLATELET COUNT (AUTO) 346 /CMM (150-450); RED BLOOD CELL COUNT(AUTO) 4.25 MIL/uL (4.5-6.0); WHITE BLOOD COUNT (AUTO) 9.2 K/uL (4.3-11.0)
[2020-12-18] MEDS: BLOOD SUGAR DIAGNOSTIC 1 EACH STRIP IN SCH ×4 (06:49→21:28)
--- NOTE | 2020-12-18 06:49 | NUR ---
blood sugar checked= 89, no coverage needed.
--- NOTE | 2020-12-18 07:20 | NUR ---
RN MS OPENING NOTES Patient is in bed, awake verbally responsive. Alert and oriented x1-2, able to make needs known. Breathing even and unlabored, currently on room air. IV line on left hand #22 intact and patent. Safety precautions in place: bed locked and on lowest position, side rails up x2, call light w/in reach. Will continue to monitor.
[2020-12-18 07:56] VITALS: BP 156/95
[2020-12-18] MEDS: ATORVASTATIN 40 MG TABLET PO SCH (08:13)
[2020-12-18] MEDS: ASPIRIN 81 MG TAB.CHEW PO SCH (08:13)
[2020-12-18] MEDS: APIXABAN 5 MG TABLET PO SCH ×2 (08:14→16:20)
[2020-12-18] MEDS: CALCIUM CARB 250MG /VITAMIN D 1 UDTAB PO SCH (08:14)
[2020-12-18 08:41] LABS: CALCIUM, SERUM 9.2 mg/dL (8.5-10.1); CREATININE 0.9 mg/dL (0.6-1.3); MAGNESIUM 1.9 mg/dL (1.8-2.4); PHOSPHORUS 3.1 mg/dL (2.5-4.9); POTASSIUM 3.8 mmol/L (3.5-5.1)
[2020-12-18] MEDS: ACETAMINOPHEN 325 MG TABLET PO PRN (09:14)
--- NOTE | 2020-12-18 09:49 | NUR ---
RN NOTES PATIENT WAS SEEN BY SPEECH THERAPIST TODAY.
[2020-12-18] MEDS: DIGOXIN 0.125 MG TABLET PO SCH (12:12)
[2020-12-18 16:00] VITALS: BP 139/82
--- NOTE | 2020-12-18 18:59 | NUR ---
RN MS CLOSING NOTES PT in bed, awake and alert. No c/o pain , no c/o distress. Able to make needs known, safety precautions observed, assisted with meals, seen by PT. Tolerated treatments well. Meds given as ordered.
--- NOTE | 2020-12-18 19:33 | NUR ---
PATIENT RECEIVED IN BED, RESTING, ALERT AND ORIENTED, DENIES ANY PAIN, ABLE TO REPOSITION HIMSELF IN THE BED, VOIDING PER URINAL. MILD EXPRESSIVE APHASIA NOTED, CALL LIGHT WITHIN REACH, PATIENT REMINDED TO CALL FOR ASSISTANCE, VERBALIZED UNDERSTANDING AND IS COMPLIANT. BED IN LOWEST POSITION, ALARM ON. WILL CONITNUE MONITORING CLOSELY.
[2020-12-18 20:00] VITALS: BP 151/85
[2020-12-19 06:19] LABS: BASOPHILS # (AUTO) 0.1 /CMM (0.0-0.2); BASOPHILS % (AUTO) 1.3 % (0.0-2.0); EOSINOPHILS % (AUTO) 1.8 % (0.0-6.0); HEMATOCRIT 39 % (39-51); HEMOGLOBIN 13.4 g/dL (13.5-17.5); LYMPHOCYTES # (AUTO) 1.6 /CMM (0.8-4.8); LYMPHOCYTES % (AUTO) 16.8 % (20.0-44.0); MEAN CORPUSCULAR HGB CONC 35 g/dl (31.0-36.0); MEAN CORPUSCULAR VOLUME 92 fL (80-96); MONOCYTES # (AUTO) 0.8 /CMM (0.1-1.30); MONOCYTES % (AUTO) 8.9 % (2.0-12.0); NEUTROPHILS # (AUTO) 6.8 /CMM (1.8-8.9); NEUTROPHILS % (AUTO) 71.2 % (43.0-81.0); PLATELET COUNT (AUTO) 356 /CMM (150-450); WHITE BLOOD COUNT (AUTO) 9.5 K/uL (4.3-11.0)
[2020-12-19] MEDS: BLOOD SUGAR DIAGNOSTIC 1 EACH STRIP IN SCH ×2 (06:42→12:00)
[2020-12-19 06:44] LABS: CALCIUM, SERUM 9.6 mg/dL (8.5-10.1); CREATININE 0.9 mg/dL (0.6-1.3); MAGNESIUM 1.8 mg/dL (1.8-2.4); PHOSPHORUS 3.4 mg/dL (2.5-4.9)
--- NOTE | 2020-12-19 07:29 | NUR ---
RN MS OPENING NOTES Patient is in bed, resting, able to be awakened. Alert and oriented x1-2, able to make needs known. Breathing even and unlabored, currently on room air. IV line on left hand #22 intact and patent. Safety precautions in place: bed locked and on lowest position, side rails up x2, call light w/in reach. Will continue to monitor.
[2020-12-19 08:34] VITALS: BP 154/69
[2020-12-19] MEDS: ATORVASTATIN 40 MG TABLET PO SCH (08:38)
[2020-12-19] MEDS: ASPIRIN 81 MG TAB.CHEW PO SCH (08:39)
[2020-12-19] MEDS: CALCIUM CARB 250MG /VITAMIN D 1 UDTAB PO SCH (08:39)
[2020-12-19] MEDS: APIXABAN 5 MG TABLET PO SCH (08:40)
--- NOTE | 2020-12-19 11:45 | NUR ---
RN NOTES PATIENT REPORT AND DISCHARGE INSTRUCTIONS/EDUCATION GIVEN TO KO PEREZ, OF [facility].
--- NOTE | 2020-12-19 11:46 | NUR ---
MAINTENANCE TECHNICIAN 3RD SHIFT NOTES PATIENT W/ STANDING ORDER FOR DISCHARGE TO [place] [facility] IN [place]; DR. AVENDAÑO MADE AWARE W/ DISCHARGE ORDER NOTED. INSTRUCTIONS AND EDUCATION PROVIDED TO PATIENT AND TO KO PEREZ, DURING PATIENT REPORT. DISCHARGE FORM AND BELONGINGS LIST FORM UNABLE TO BE SIGNED BY PATIENT; WITNESSED BY ME AND COSIGNED BY ANOTHER RN, VAMSI. PATIENT REFUSED PHOTO TO BE TAKEN OF KNEE, STATES THAT "IT'S OKAY". NO COMPLAINT OF PAIN AT THIS TIME. IV LINE REMOVED, PROCEDURE TOLERATED WELL BY PATIENT. PATIENT WAS PICKED UP VIA GURNEY ACCOMPANIED BY 2 STOCK ORDER LISTER; BEDSIDE ENDORSEMENT DONE. CHARGE NURSE AND MD AWARE OF DISCHARGE.
== END 2020-12-19 12:23 | DRG 64 ==
LOC: ER 05:03 → TRANSITION 09:39 → TELE 09:53 → MED 12-16 11:20
PROVIDERS: ADMIT Internal Medicine; ATTEND Student in an Organized Health Care Education/Training Program
DX: I63.232 Cerebral infarction due to unspecified occlusion or stenosis of left carotid arteries (principal); N17.0 Acute kidney failure with tubular necrosis; D68.69 Other thrombophilia; R47.01 Aphasia; I48.91 Unspecified atrial fibrillation; I10 Essential (primary) hypertension; R40.2362 Coma scale, best motor response, obeys commands, at arrival to emergency department; R40.2142 Coma scale, eyes open, spontaneous, at arrival to emergency department; R29.701 NIHSS score 1; E78.5 Hyperlipidemia, unspecified; E03.9 Hypothyroidism, unspecified; Z79.01 Long term (current) use of anticoagulants; Z79.82 Long term (current) use of aspirin; Z79.899 Other long term (current) drug therapy; Z86.73 Personal history of transient ischemic attack (TIA), and cerebral infarction without residual deficits; Z92.21 Personal history of antineoplastic chemotherapy; Z92.3 Personal history of irradiation; R40.2252 Coma scale, best verbal response, oriented, at arrival to emergency department; W01.0XXA Fall on same level from slipping, tripping and stumbling without subsequent striking against object, initial encounter; Y92.89 Other specified places as the place of occurrence of the external cause; Z79.02 Long term (current) use of antithrombotics/antiplatelets; D32.9 Benign neoplasm of meninges, unspecified; Z20.822 Contact with and (suspected) exposure to COVID-19
CPT/HCPCS: 36415; 70450-TC; 70496-TC; 71045-TC; 73564-TC; 80048-TC; 80061-TC; 80162-TC; 82962-TC; 83735-TC; 83880; 84100-TC; 84484-TC; 85025-TC; 85730-TC; 87081-TC; 92507-TC; 92521; 92526; 92611-TC; 97110-TC; 97112-TC; 97116-TC; 97530-TC; C9803; G0378; J3475; J7030; J7050; Q9967